=== PATIENT | female | born 1930 | race Caucasian/White ===

== ENCOUNTER 2019-02-08 06:38 | Day surgery (SDC) ==
[2019-02-06 15:40] LABS: HEMATOCRIT 48.4 % (37.0-47.0); HEMOGLOBIN 15.8 g/dL (12.0-16.0); MCH 30.3 PG (27-31); MCHC 32.6 g/dL (33-37); MCV 92.9 FL (81-99); MPV 11.5 FL (7.4-10.4); RBC 5.21 XMIL (4.2-5.4); RDW 12.8 % (11.5-14.5); WBC 7.27 X1000 (4.8-10.8)
[2019-02-06 16:06] LABS: CALCIUM 9.8 mg/dL (8.8-10.2); CREATININE 1.3 mg/dL (0.5-0.9); POTASSIUM 4.1 mmol/L (3.5-5.1)
[2019-02-08] MEDS ORDERED: LR 1,000 ML ONE (07:10)
[2019-02-08] MEDS ORDERED: KEFZOL 2 GM/D5W 2 GM/50 ML IVPB ONE (07:11)
[2019-02-08] MEDS ORDERED: ROBINUL ONE ×2 (07:30→08:38)
[2019-02-08] MEDS ORDERED: NEOSTIGMINE ONE ×2 (07:30→08:37)
[2019-02-08] MEDS ORDERED: DIPRIVAN 1% ONE (07:30)
[2019-02-08] MEDS ORDERED: QUELICIN (DOSE) ONE (07:55)
[2019-02-08] MEDS ORDERED: DECADRON ONE (08:33)
[2019-02-08] MEDS ORDERED: ZOFRAN ONE (08:35)
[2019-02-08] MEDS ORDERED: NORCURON ONE (08:35)
[2019-02-08] MEDS ORDERED: FENTANYL ONE (09:48)
[2019-02-08] MEDS ORDERED: B & O 15A SUPP ONE (10:02)
[2019-02-08] MEDS: DILAUDID ONE ×2 (10:36→10:46)
[2019-02-08 11:06] LABS: HEMATOCRIT 41.5 % (37.0-47.0); HEMOGLOBIN 13.6 g/dL (12.0-16.0); MCHC 32.8 g/dL (33-37); MCV 91.4 FL (81-99); MPV 11.1 FL (7.4-10.4); RBC 4.54 XMIL (4.2-5.4); RDW 12.6 % (11.5-14.5); WBC 5.38 X1000 (4.8-10.8)
[2019-02-08] MEDS ORDERED: D5 1/2 NS 1,000 ML ONE (11:06)
[2019-02-08] MEDS ORDERED: MORPHINE IV PRN (11:47)
[2019-02-08] MEDS ORDERED: NORCO-7.5 PO PRN (12:00)
[2019-02-08] MEDS ORDERED: ZOFRAN IV PRN (12:00)
[2019-02-08] MEDS ORDERED: DITROPAN PO PRN (12:00)
[2019-02-08] MEDS ORDERED: D5 1/2 NS 1,000 ML IV SCH (12:00)
--- NOTE | 2019-02-08 13:30 | OPERATIVE NOTE ---
PROCEDURE DATE: 02/08/2019 PREOPERATIVE DIAGNOSIS: Right bladder mass. POSTOPERATIVE DIAGNOSIS: Right bladder mass. PROCEDURE PERFORMED: Cystoscopy with transurethral resection of bladder tumor at greater than 2 cm, less than 5 cm. SURGEON: Fernando Canela MD. PHYSICIAN PRACTICE ADMINISTRATOR: None. COMPLICATIONS: None. BLOOD LOSS: 75 mL. SPECIMEN REMOVED: Bladder chips. DRAINS: 20-Ecuadorean Marrero catheter. COMPLICATIONS: None. OPERATIVE FINDINGS: The patient had a normal urethra. No evidence of any papillary lesions. On entry into the bladder, a relatively large bladder mass was seen on the right side of the bladder. The ureteral orifices was seen inferior to this and uninvolved. Approximately a 3.5 to 4 cm tumor was seen on the right lateral wall of the bladder. This was seen previously in the office. No other lesions were seen in the bladder itself. The patient then underwent transurethral resection of the bladder tumor with over 95% of the tumor removed. The patient was having episodes of hypothermia and Anesthesia asked to terminate the procedure prior to complete resection. A large amount of fluid was required throughout the procedure due to hypervascularity of the tumor itself likely leading to her hypothermia, as well as undergoing anesthesia. At the end of the case, the tumor bed appeared to be flat with no obvious areas of bleeding. The ureteral orifice on the right side was uninvolved, but close to the resection bed. Peristalsis was not seen; however, efflux was seen from the right ureteral orifice throughout the procedure. The decision was made to hold off on placement of stent due to bladder irritation and likely increased risk of bleeding. The patient had prior CT urogram which showed no evidence of hydronephrosis. INDICATION FOR PROCEDURE: Ms. Montejo is an 88-year-old with history of osteoarthritis, who presented to Urology office due to hematuria. The patient had gross hematuria and concern for possible UTI. However, had negative urine cultures by primary care physician, was referred to Urology for further management. The patient has been seen off and on for the past month by several physicians and ultimately was seen in Urology office. On evaluation the patient had no risk factors for bladder cancer. However, on CT of abdomen and pelvis, she did have an approximate 3.5 to 4 cm lesion in the right base of the bladder. No evidence of hydronephrosis and no other lesions were seen in the bladder. The patient did undergo cystoscopy in the office, which confirmed a bladder mass protruding from the right lateral wall. Due to this location, it was recommended to undergo transurethral resection of bladder tumor. Risks, benefits, alternatives of procedure discussed with the patient, and the patient and her daughter elected to proceed. DESCRIPTION OF PROCEDURE: After informed consent was obtained, the patient was brought to the operating room, placed on the operative table in the supine position. Received preoperative antibiotics and underwent endotracheal intubation. She was then placed into a dorsal supine position, was prepped and draped in usual sterile fashion. A preop time-out was performed with all parties in agreement, including anesthesia, surgical and nursing staff, at which time a 21- Ecuadorean cystourethroscope inserted in the urethra showing a normal caliber urethra, no evidence of any stricture or disease. The entirety of the bladder was inspected. Both ureteral orifices were visualized. The left ureteral orifice was draining clear urine. No evidence of any papillary lesions were seen on the left side of the bladder. On inspection of the right side of the bladder, there was an approximate 3.5 to 4 cm tumor present at the base just posterior and lateral to the ureteral orifice. The tumor had appearance of several frons and an overall papillary appearance. No other tumors were seen within the bladder itself. The cystourethroscope was removed and a 25- Ecuadorean resectoscope was then inserted through the urethra and systematically the tumor was resected. The tumor was quite vascular and did require multiple irrigations of the bladder in order to see the tumor itself. This was systematically resected down to the base. Good hemostasis was obtained. The patient began having some hypothermia likely related to the high influx of fluid, as well as the anesthesia. Anesthesia asked to terminate the procedure due to hypothermia. Good hemostasis was obtained, with likely a small amount of tumor remaining, and will need a repeat transurethral resection. All chips were extracted from the bladder itself. No evidence of any other chips were seen. All the specimen was obtained and sent as 1 specimen. The patient's bladder was left full and a 20-Ecuadorean Marrero catheter was inserted through the urethra and inflated with 10 mL of sterile water and irrigated with no return of bloody irrigant. Irrigant was light pink with no evidence of any residual fragments. Good drainage was seen through the catheter and placed to gravity drainage with StatLock on the right lower extremity. The patient was then awoken and was taken to recovery in stable condition and had a warmer placed and Bear hugger. DISPOSITION: The patient will be monitored overnight in the hospital with plan to discharge tomorrow with Marrero catheter. We will plan for the Marrero catheter to be removed on Tuesday, likely at home. We will tentatively schedule patient for repeat procedure in 3 weeks due to concern over high-grade disease with residual tumor burden within the bladder. This was discussed with family after the procedure. cc: Fernando Canela MD [facility]
[2019-02-08] MEDS: KEFZOL 1 GM/D5W 1 GM/50 ML IVPB IV SCH (17:00)
[2019-02-08] MEDS: COLACE PO SCH (22:54)
[2019-02-08] MEDS: PERIDEX MT SCH (22:54)
[2019-02-09] MEDS: KEFZOL 1 GM/D5W 1 GM/50 ML IVPB IV SCH ×2 (01:08→07:51)
[2019-02-09 06:30] LABS: HEMATOCRIT 38.1 % (37.0-47.0); HEMOGLOBIN 12.4 g/dL (12.0-16.0); LYMPH# 0.82 X1000 (1.2-3.4); LYMPH% 9.1 % (20.5-51.1); MCHC 32.5 g/dL (33-37); MONO# 0.53 X1000 (0.11-0.59); MONO% 5.9 % (1.7-9.3); MPV 11.5 FL (7.4-10.4); NEUT# 7.68 X1000 (1.4-6.5); PLT 146 X1000 (130-400); RBC 4.14 XMIL (4.2-5.4); RDW 12.3 % (11.5-14.5); WBC 9.03 X1000 (4.8-10.8)
[2019-02-09 07:01] LABS: AGAP 6; BUN 13 mg/dL (8-22); CALCIUM 8.7 mg/dL (8.8-10.2); CHLORIDE 100 mmol/L (98-107); COSMO 269; CREATININE 0.8 mg/dL (0.5-0.9); ESTIMATED GFR > 60; GLUCOSE 147 mg/dL (70-104); POTASSIUM 5.4 mmol/L (3.5-5.1); SODIUM 133 mmol/L (136-145); TCO2 27 mmol/L (25-35)
[2019-02-09 07:46] VITALS: BP 134/61
[2019-02-09] MEDS: COLACE PO SCH ×2 (07:51→15:46)
[2019-02-09] MEDS: PERIDEX MT SCH ×2 (07:51→15:46)
--- NOTE | 2019-02-09 12:26 | PROGRESS NOTE ---
DATE: 02/09/2019 SUBJECTIVE: Postop day 1 from cystoscopy and transurethral resection of bladder tumor. The patient was admitted overnight for observation. The patient's urine has drained clear yellow urine. She denies any pain, dysuria or bladder spasms. The patient is tolerating her diet. Denies any nausea or vomiting. The patient has been up to the bathroom several times for attempted bowel movements and is passing flatus without issue. Vital signs are stable. OBJECTIVE: Temperature 98.4 degrees, heart rate 62, blood pressure 134/61, and oxygen saturation 96% on room air. General: No acute distress resting comfortably in bed. Alert and oriented x3. Respiratory: Good respiratory effort without audible wheezing or rales. Abdomen: Soft, nontender, and nondistended. No CVA tenderness. : No suprapubic tenderness. Urethral catheter in place draining clear yellow urine. Musculoskeletal: Moving all extremities without issue. LABORATORY: White blood cell count 9.0, hemoglobin 12.4, hematocrit 38.1, and platelets 146,000. Sodium 133, potassium 5.4, chloride 100, bicarb 27, BUN 13, creatinine 0.8, glucose 147. ASSESSMENT AND PLAN: Ms. Montejo is an 88-year-old who presented for cystoscopy and transurethral resection of bladder tumor yesterday. The patient was observed overnight for planned admission. After procedure, the patient's urine has remained clear without any blood. She denies any pelvic pain or dysuria. Her abdomen remained soft, nontender, and nondistended. Continue on home medications. We will continue oral pain medications as tolerated. We will keep catheter over the weekend. We will plan to remove at home on Tuesday. Follow up in clinic next for pathology discussion. All questions and concerns were addressed. We will hopefully discharge later today. cc: Fernando Canela MD [facility]
== END 2019-02-09 11:03 | disposition home or self-care (01) ==
LOC: DIRADM 06:38 → OR 06:38 → 4N 11:32 → OR 02-09 11:03
PROVIDERS: ATTEND Urology
CPT/HCPCS: 80048; 85025; 85027; 88307; 94760; 94799; A9270; J0330; J0690; J1100; J1170; J2405; J3010; J7120; Q9966; Q9967